=== PATIENT | female | born 1965 | race Caucasian/White ===

== ENCOUNTER 2017-07-21 07:05 | Observation (INO) | payer OTHER ==
[~2017-07-21] VITALS: Ht 152.4 cm; Wt 56.0 kg
[~2017-07-21 07:05] MED LIST: LISI-515 PO; OMEP20TA93 PO; PARO40TA2 PO
--- NOTE | 2017-07-21 07:44 | PD.OP ---
Operative Report Date of Surgery: July 21, 2017 Preoperative Diagnosis: (1) Intramural leiomyoma of uterus (2) Lower abdominal pain (3) Pelvic and perineal pain Postoperative Diagnosis: (1) Intramural leiomyoma of uterus (2) Lower abdominal pain (3) Pelvic and perineal pain Procedure: 1. LSCH 2. BSO Anesthesia: GETA Surgeon: Natalie Santillan Well Puller(s): OR Staff Operation and Findings: IVF: 1200 ml LR + IV antibiotics given prior to surgery + Methylene blue dye given during surgery EBL: 100 ml UO: 300 ml Findings: 1. enlarged fibroid uterus 2. left ovarian cyst 3. abdominal adhesions involving bowel and right abdominal wall Specimens: uterus, tubes, ovaries Complications: none Condition: stable Disposition: PACU Descriptions of the procedure: I discussed the risks, benefits and alternatives of the procedure with the patient. Informed consent was obtained after questions were answered. She was then taken to the operating room with her IV running. She was placed in the supine position and was given general anesthesia without difficulties or complications. She was then placed in the dorsal lithotomy position and was prepped and draped in the usual sterile fashion. Attention was first turned to the patient's genital area. A bivalved speculum was introduced inside the patient's vagina. The anterior aspect of the cervix was grasped with a single tooth tenaculum for manipulation. The cervix was carefully dilated and electrocauterized with the Bovie. A uterine manipulator was carefully introduced inside her uterus. The rest of the instruments were removed from the patient's vagina. A sterile blue towel was used to cover the perineum. The surgeon changed gloves and attention was then turned to the patient's abdomen. A vertical umbilical incision was made with the scalpel. A 5 mm trocar was introduced inside the patient's abdomen under direct visualization. A pneumo -peritoneum was created with CO2 gas. Two 5 mm trocars and one 10 mm trocar were introduced inside the patient's abdomen under direct visualization in the lower right, and mid abdomen. A survey of the patient's abdomen revealed normal anatomy. A survey of the patient's pelvis revealed the findings noted above. The round ligaments and the infundibulopelvic ligaments were carefully and serially grasped, electrocauterized and cut with the Harmonic scalpel. Excellent hemostasis was noted. The tissues along the uterus on both sides were serially grasped, electrocauterized and transected with the Harmonic scalpel. The ureters were noted to be away from the surgical site. The uterine vessels were skeletonized, electrocauterized and transected with the Harmonic scalpel. Good hemostasis was noted. Next, the bladder flap was created and the bladder was dissected off the lower uterine segment. Excellent hemostasis was noted. The uterine manipulator was removed. Brenda loop was used to cut and electrocauterize the cervico-uterine junction. Good hemostasis was noted. The Kleppinger was used to electrocauterized the endocervix. The morcellator was introduced inside the abdomen under direct visualization and was used to cut the uterus and adnexa. The tissues were carefully removed and sent to Pathology. The surgical sites were noted to be hemostatic. Copious irrigation was done. Care was taken to ensure the removal of all small pieces of tissue which were left in the abdomen and pelvis after morcellation. Methylene blue dye was given at the beginning of the surgical procedure. The ureters were identified again and were found to be away from the surgical sites. There was no evidence of injury or blockage of the ureters or bladder. Surgicel powder was placed over the cervix. All of the instruments were removed from the patient's abdomen. The ports were also removed under direct visualization. Excellent hemostasis was noted. The CO2 gas was carefully expressed out of the patient's abdomen. The 10 mm fascial incision was reapproximated with a figure eight stitch of 0-Vicryl. The skin incisions were injected with 0.5 % Marcaine and were reapproximated with subcutaneous stitches of 4-0 Vicryl. Mastisol and steri strips were placed over the incisions. The patient tolerated the procedure well. She was successfully extubated and transferred to PACU in stable condition. Note: I discussed surgical procedures and surgical findings with patient's over the phone. His questions were answered. He verbalized understanding. Natalie Santillan MD July 21, 2017 07:44
[2017-07-21] MEDS ORDERED: METOPROLOL TARTRATE 25 MG TAB PO PRN (07:45)
[2017-07-21] MEDS ORDERED: ceFAZolin 2 GM/DEX PREMIX 50 ML IV SCH (07:45)
[2017-07-21] MEDS ORDERED: LACTATED RINGER'S 1000 ML IV PRN (07:45)
[2017-07-21] MEDS ORDERED: SODIUM CHLORID 0.9% 500 ML IV PRN (07:45)
[2017-07-21] MEDS ORDERED: CHLORHEXIDINE GLUCONATE 2 % 1 PACK (2 CLOTHS) TOPICAL PRN (07:45)
[2017-07-21] MEDS ORDERED: POVIDONE IODINE 5% (ANTISEPSIS KIT) 4 APPLICATIONS EACH NARE PRN (07:45)
[2017-07-21] MEDS ORDERED: ACETAMINOPHEN 1000 MG/100 ML 100 ML IV ONE (08:33)
[2017-07-21] MEDS ORDERED: fentaNYL CITRATE 250 MCG/5 ML AMP ONE (08:33)
[2017-07-21] MEDS ORDERED: BUPIVACAINE HCL PF 0.5% 30 ML VIAL ONE (08:45)
[2017-07-21] MEDS ORDERED: VASOPRESSIN 20 UNITS/ML VIAL ONE (08:46)
[2017-07-21] MEDS ORDERED: METHYLENE BLUE 10 MG/ML VIAL ONE (08:46)
[2017-07-21] MEDS ORDERED: MIDAZOLAM HCL 2 MG/2 ML VIAL ONE (08:55)
[2017-07-21] MEDS ORDERED: *MEPERIDINE 25 MG INJ VIAL PERIprocedural Use ONLY ONE (11:38)
[2017-07-21] MEDS ORDERED: *morphine SULFATE 4 MG/ML PERIprocedure ONLY ONE ×2 (11:45→12:31)
[2017-07-21] MEDS ORDERED: GLYCOPYRROLATE 1 MG/5 ML SYRINGE IV PUSH ONE (12:00)
[2017-07-21] MEDS ORDERED: PROPOFOL 200 MG/20 ML AMP IV ONE (12:00)
[2017-07-21] MEDS ORDERED: NEOSTIGMINE 5 MG/5 ML SYRINGE IV PUSH ONE (12:00)
[2017-07-21] MEDS ORDERED: DEXAMETHASONE SOD PHOS 4 MG/ML VIAL IV ONE (12:00)
[2017-07-21] MEDS ORDERED: DO NOT ADM ANY ANTICOAGULANT DRUGS PRN (12:00)
[2017-07-21] MEDS ORDERED: PHENYLEPH/NS 1000 MCG/10 ML SYR IV ONE (12:00)
[2017-07-21] MEDS ORDERED: ONDANSETRON HCL 4 MG/2 ML VIAL IV ONE (12:00)
[2017-07-21] MEDS ORDERED: ROCURONIUM INJ 50 MG/5 ML SYRINGE IV PUSH ONE (12:00)
[2017-07-21] MEDS ORDERED: oxyCODONE/ACETAMINOPHEN 5 MG/325 MG TAB PO PRN ×3 (12:00→14:15)
[2017-07-21] MEDS ORDERED: LACTATED RINGER'S 1000 ML INJ 1,000 ML IV ONE (12:00)
[2017-07-21] MEDS ORDERED: LIDOCAINE HCL 1% PF 5 ML SYRINGE OTHER ONE (12:00)
[2017-07-21] MEDS ORDERED: ONDANSETRON HCL 4 MG/2 ML VIAL IVP PRN (14:15)
[2017-07-21] MEDS ORDERED: SODIUM CHLORIDE 0.9% FLUSH 10 ML FLUSH IV FLUSH PRN (14:15)
[2017-07-21] MEDS ORDERED: IBUPROFEN 600 MG TAB PO PRN (14:15)
[2017-07-21] MEDS ORDERED: diphenhydrAMINE HCL 25 MG CAP PO PRN (14:15)
[2017-07-21] MEDS ORDERED: PROMETHAZINE HCL 25 MG TAB PO PRN (14:15)
[2017-07-21] MEDS: LACTATED RINGER'S 1000 ML INJ 1,000 ML IV SCH ×2 (14:20→21:18)
[2017-07-21] MEDS: ACETAMINOPHEN 1000 MG/100 ML 100 ML IV SCH ×2 (14:45→21:17)
[2017-07-21] MEDS ORDERED: LORazepam 0.5 MG TAB PO PRN (15:00)
[2017-07-21] MEDS ORDERED: ONDANSETRON ODT 4 MG TAB PO PRN (15:00)
[2017-07-21] MEDS ORDERED: PROMETHAZINE INJ 25 MG/ML VIAL IM PRN (15:00)
[2017-07-21] MEDS ORDERED: PILL SPLITTER OTHER PRN (15:00)
[2017-07-21] MEDS ORDERED: SODIUM CHLORID 0.9% 500 ML INJ 500 ML IV ONE (16:30)
[2017-07-21 17:11] VITALS: BP 92/57; PULSE 76; RESP 16; TEMP 97.6; O2SAT 96
[2017-07-21 20:51] VITALS: BP 82/51; PULSE 74; RESP 18; TEMP 98
[2017-07-21] MEDS ORDERED: SODIUM CHLORIDE 0.9% FLUSH 10 ML FLUSH IV FLUSH SCH (21:00)
[2017-07-21] MEDS ORDERED: ZOLPIDEM TARTRATE 5 MG TAB PO PRN (21:00)
[2017-07-21] MEDS: DOCUSATE SODIUM 100 MG CAP PO SCH (21:17)
[2017-07-22 00:17] VITALS: BP 98/53; PULSE 68; RESP 18; TEMP 98
[2017-07-22] MEDS: ACETAMINOPHEN 1000 MG/100 ML 100 ML IV SCH ×2 (03:04→09:52)
[2017-07-22 04:17] VITALS: BP 89/57; PULSE 67; RESP 18; TEMP 98; O2SAT 96
[2017-07-22 05:02] LABS: AUTOMATED NEUTROPHIL # 8.2 TH/MM3 (1.8-7.7); BASOPHIL % 0.2 % (0.0-2.0); EOSINOPHIL % 0.1 % (0.0-4.0); HEMATOCRIT 35.3 % (35.0-46.0); HEMOGLOBIN 12.2 GM/DL (11.6-15.3); LYMPHOCYTE # 1.7 TH/MM3 (1.0-4.8); MEAN CELL VOLUME 93.9 FL (80.0-100.0); MEAN CORPUSCULAR HEMOGLOBIN 32.4 PG (27.0-34.0); MEAN CORPUSCULAR HGB CONC 34.5 % (32.0-36.0); MEAN PLATELET VOLUME 9.4 FL (7.0-11.0); MONOCYTE # 0.6 TH/MM3 (0-0.9); NEUT % 77.7 % (16.0-70.0); PLATELET COUNT 172 TH/MM3 (150-450); RED BLOOD COUNT 3.76 MIL/MM3 (4.00-5.30); RED CELL DISTRIBUTION WIDTH 12.9 % (11.6-17.2); WHITE BLOOD COUNT 10.6 TH/MM3 (4.0-11.0)
[2017-07-22 05:19] LABS: BICARBONATE 26.4 MEQ/L (21.0-32.0); CALCIUM 7.7 MG/DL (8.5-10.1); CREATININE 0.51 MG/DL (0.50-1.00)
[2017-07-22 06:15] VITALS: BP 106/67; PULSE 72
--- NOTE | 2017-07-22 08:21 | EKG ---
Date Performed: 07/21/2017 Time Performed: 08:02:08 PTAGE: 51 years EKG: Sinus rhythm NORMAL ECG NO PREVIOUS TRACING DOCTOR: Caroline Melvin Interpretating Date/Time 07/22/2017 08:19:36
[2017-07-22 08:25] VITALS: BP 103/69; PULSE 66; RESP 18; TEMP 98.2; O2SAT 96
--- NOTE | 2017-07-22 08:25 | HHI.PR ---
Subjective Remarks Doing well, pain is well controlled, eating well. Objective Vital Signs Vital Signs Date Time Temp Pulse Resp B/P (MAP) Pulse Ox O2 Delivery O2 Flow Rate FiO2 07/22/17 06:15 72 106/67 (80) 07/22/17 04:17 98.0 67 18 89/57 (68) 96 07/22/17 00:17 98.0 68 18 98/53 (68) 07/21/17 20:51 98.0 74 18 82/51 (61) 07/21/17 17:11 97.6 76 16 92/57 (69) 96 07/21/17 15:50 98.3 80 18 95/56 (69) 97 Room Air 07/21/17 15:30 82 18 94/52 (66) 97 Room Air 07/21/17 15:15 88 16 87/52 (64) 93 Room Air 07/21/17 15:00 82 16 84/52 (63) 93 Room Air 07/21/17 14:45 82 16 92/54 (67) 94 Room Air 07/21/17 14:30 81 17 92/55 (67) 95 Room Air 07/21/17 14:15 85 17 87/48 (61) 95 Room Air 07/21/17 14:00 88 18 88/54 (65) 95 Room Air 07/21/17 13:45 88 18 94/52 (66) 94 Room Air 07/21/17 13:30 85 18 86/45 (59) 94 Room Air 07/21/17 13:15 92 18 87/48 (61) 94 Room Air 07/21/17 13:05 89 18 89/51 (64) 98 Room Air 07/21/17 13:00 89 18 89/51 (64) 98 Room Air 07/21/17 12:45 86 16 88/51 (63) 98 Nasal Cannula 3 07/21/17 12:30 90 16 93/54 (67) 95 Nasal Cannula 3 07/21/17 12:15 88 15 95/50 (65) 100 Nasal Cannula 3 07/21/17 12:00 83 16 93/50 (64) 99 Nasal Cannula 3 07/21/17 11:45 96 15 113/55 (74) 98 Nasal Cannula 3 07/21/17 11:30 93 16 124/70 (88) 96 Nasal Cannula 3 07/21/17 11:26 98.5 92 16 117/56 (76) 96 Nasal Cannula 4 07/21/17 08:37 98.1 66 16 122/75 (91) 100 I/O 07/21/17 07/21/17 07/21/17 07/22/17 07/22/17 07/22/17 07:00 15:00 23:00 07:00 15:00 23:00 Intake Total 2625 ml 840 ml 2767 ml Output Total 600 ml 50 ml 1200 ml 350 ml Balance 2025 ml 790 ml 1567 ml -350 ml Intake Oral 125 ml 240 ml 500 ml IV Total 1300 ml 600 ml 2267 ml Other 1200 ml Output Urine Total 200 ml 50 ml 1200 ml 350 ml Estimated Blood Loss 100 ml Other 300 ml Result Diagram: 07/22/17 0419 07/22/17 0419 Objective Remarks Chest is clear, regular rate and rhythm. Abdomen is soft and non-distended. Incision is clean and dry. Ext no CCE. A/P Assessment and Plan Post Op Day 1 Doing well Home today and return to office in two weeks. Natalie Santillan MD July 22, 2017 08:25
--- NOTE | 2017-07-22 08:37 | HHI.DCPOC ---
Discharge Care Plan Diagnosis: (1) Intramural leiomyoma of uterus (2) Pelvic and perineal pain Additional Problems Low Blood pressure after surgery Report Symptoms to Your Doctor -Temperature above 100.5 degrees -Redness, of incision or excessive or foul smelling drainage -Unusual pain or calf pain -Increased vaginal bleeding -Painful or difficulty urinating -Feelings of extreme sadness or anxiety after 2 weeks Directions to Meet Your Goals Take your medications as prescribed Follow your dietary instruction Follow activity as directed Ensure plenty of rest for recovery Drink fluids for hydration Keep your appointments as scheduled Take your immunizations and boosters as scheduled If your symptoms worsen call your PCP, if no PCP go to Urgent Care Center or Emergency Room Smoking is Dangerous to Your Health. Avoid second hand smoke Call the 24-hour crisis hotline for domestic abuse at Natalie Santillan MD July 22, 2017 08:37
[2017-07-22] MEDS ORDERED: LACTATED RINGER'S 1000 ML INJ 1,000 ML IV ONE (08:45)
[2017-07-22] MEDS: DOCUSATE SODIUM 100 MG CAP PO SCH (09:51)
[2017-07-22 11:43] VITALS: BP 102/63; PULSE 70
== END 2017-07-22 14:24 | disposition home or self-care (01) ==
LOC: HSDC 07:05 → HSDI 13:56 → H1EA 16:26
PROVIDERS: ADMIT Obstetrics & Gynecology; ATTEND Obstetrics & Gynecology
DX: D25.1 Intramural leiomyoma of uterus (principal); N83.202 Unspecified ovarian cyst, left side; K66.0 Peritoneal adhesions (postprocedural) (postinfection); N80.0 Endometriosis of uterus; N83.8 Other noninflammatory disorders of ovary, fallopian tube and broad ligament; I10 Essential (primary) hypertension
CPT/HCPCS: 00840; 58542; 80048; 85025; 86850; 86900; 86901; 88307; 93005; 94150; 96374; 96376; G0378; J0131; J0690; J1100; J2175; J2250; J2270; J2370; J2405; J2710; J3010; J7120